=== PATIENT | female | born 1965 | race Caucasian/White ===

== ENCOUNTER 2020-11-11 12:05 | Inpatient (IN) | payer OTHER ==
[~2020-11-11] VITALS: Ht 162.6 cm; Wt 57.2 kg
[2020-11-11 14:13] LABS: HEMOGLOBIN 13.3 gm/dl (12.3-15.3); RED BLOOD COUNT 5.01 M/UL (4.00-5.10); WHITE BLOOD COUNT 9.3 K/UL (4.5-11.0)
[2020-11-11] MEDS ORDERED: GABAPENTIN400 MG PO (18:35)
[2020-11-11] MEDS ORDERED: KLONOPIN0.5 MG PO (18:35)
[2020-11-11] MEDS ORDERED: HYDROCODON-ACE1 EAC6 PO (18:36)
[2020-11-11] MEDS ORDERED: AMLODIPINE BESYL5 MG PO (18:36)
[2020-11-11] MEDS ORDERED: CETIRIZINE HCL10 MG PO (18:37)
[2020-11-11] MEDS ORDERED: BACLOFEN20 MG PO (18:37)
[2020-11-11] MEDS ORDERED: METOPROLOL TART25 MG PO (18:38)
[2020-11-11] MEDS ORDERED: HYDROXYZINE PAM25 MG PO (18:38)
[2020-11-12 02:43] LABS: HEMOGLOBIN 14.1 gm/dl (12.3-15.3); RED BLOOD COUNT 5.34 M/UL (4.00-5.10); WHITE BLOOD COUNT 9.2 K/UL (4.5-11.0)
[2020-11-13 03:55] LABS: HEMOGLOBIN 13.7 gm/dl (12.3-15.3); RED BLOOD COUNT 5.19 M/UL (4.00-5.10)
[2020-11-13 09:10] LABS: HBSAG SCREEN Negative (Negative); HEP A AB, IGM Negative (Negative); HEP B CORE AB, IGM Indeterminate (Negative); HEP C VIRUS AB <0.1 (0.0-0.9)
[2020-11-14 02:36] LABS: HEMOGLOBIN 12.6 gm/dl (12.3-15.3); RED BLOOD COUNT 4.81 M/UL (4.00-5.10); WHITE BLOOD COUNT 10.9 K/UL (4.5-11.0)
[2020-11-15 04:41] LABS: RED BLOOD COUNT 5.35 M/UL (4.00-5.10); WHITE BLOOD COUNT 13.8 K/UL (4.5-11.0)
[2020-11-15 05:02] LABS: BUN/CREATININE RATIO 22 (0-10)
--- NOTE | 2020-11-15 13:00 | NUR ---
PT TRANSFERRED TO HOUSE PAINTING INSTRUCTOR AT THIS TIME
--- NOTE | 2020-11-15 14:40 | NUR ---
PT BACK FROM [facility], SHEATH REMAINS IN PLACE ACT AT THIS TIME WAS >400, WILL RECHECK IN 1 HOUR
--- NOTE | 2020-11-15 16:08 | NUR ---
ACT DONE AT THIS TIME 239, WILL RECHECK IN 1 HOUR
--- NOTE | 2020-11-15 17:15 | NUR ---
ACT AT THIS TIME WAS 187, WILL RECHECK IN 1 HOUR
[2020-11-15 21:04] LABS: HEMOGLOBIN 13.5 gm/dl (12.3-15.3); RED BLOOD COUNT 5.12 M/UL (4.00-5.10); WHITE BLOOD COUNT 10.5 K/UL (4.5-11.0)
--- NOTE | 2020-11-16 01:00 | NUR ---
ACT WAS 142 AT 2009. SHEATH WAS PULLED AT 2030 BY THE PRIMARY NURSE (ME), AND ASSISTED BY A 2ND NURSE. MANUAL PRESSURE WAS APPLIED 2CM ABOVE SHEATH INSERTION SITE, WHERE THE FEMORALPULSE COULD BE PALAPATED. THE PATIENT HAD BEEN GIVEN PAIN MEDICATION PRIOR TO PULLING SHEATH. THE PATIENT WAS SCREAMING THAT I WAS KILLING HER. THE PATIENT THEN KEPT BEARING DOWN AND TRYING TO MOVE MY HANDS. THE PATIENT STARTED BLEEDING AT 2035. THE 2ND NURSE ASSISTING WENT TO GET HELP AND CAME BACK WITH A 3RD NURSE. I SWITCHED OUT HOLDING PRESSURE WITH THE 3RD NURSE AND PRESSED THE STAFF ASSIST BUTTON. I CALLED THE EXPLOSIVE TECHNICIAN WHO DID THE PATIENT'S HEART CATH, DR. TURNER. DR. TURNER WAS INFORMED OF THE SITUATION AND ORDERED 1MG OF VERSED TO BE GIVEN IMMEDIATELY IVP. DR. TURNER ALSO INSTRUCTED TO KEEP GIVING 1MG OF VERSED IVP OR 1MG OF ATIVAN IVP Q1H NEEDED TO KEEP THE PATIENT FROM BEARING DOWN AND LAYING FLAT. MD INSTRUCTED TO ONLY REFRAIN FROM GIVING MEDICATION IF THE PATIENT'S SBP DROPS BELOW 100. 1MG OF VERSED WAS GIVEN TO THE PATIENT IVP AT 2056. PRESSURE WAS RELEASED AT 2050. DSTAT WAS APPLIED WITH TEGADERM. THROUGHOUT THE EVENT THE PATIENT'S SBP NEVER DROPPED BELOW 107. A CBC WAS OBTAINED TO MEASURE BLOOD LOSS. THE PATIENTS HGB DROPPED FROM 14.0 TO 13.5. PATIENT IS CURRENTLY RESING FLAT AND HAS A 10LB SANDBAG OVER TOP OF THE SITE. THERE IS NO HEMATOMA.
[2020-11-16 03:28] LABS: HEMOGLOBIN 12.6 gm/dl (12.3-15.3); RED BLOOD COUNT 4.85 M/UL (4.00-5.10); WHITE BLOOD COUNT 9.1 K/UL (4.5-11.0)
[2020-11-16 03:50] LABS: BUN/CREATININE RATIO 24 (0-10)
--- NOTE | 2020-11-16 10:29 | NUR ---
PATIENT LEFT FLOOR AT 0750 PER RADIOLOGY STAFF FOR VIABLILITY STUDY. SHE WAS RETURNED AT 0840. NADN. WILL CONTINUE TEST IN AM. PER STAFF PATIENT WILL NOT HAVE TO BE NPO FOR THE 2ND HALF OF THE TEST
[2020-11-17 03:21] LABS: HEMOGLOBIN 11.5 gm/dl (12.3-15.3); RED BLOOD COUNT 4.41 M/UL (4.00-5.10); WHITE BLOOD COUNT 10.4 K/UL (4.5-11.0)
[2020-11-17] MEDS ORDERED: LISINOPRIL2.5 MG PO (14:38)
[2020-11-17] MEDS ORDERED: ASPIRIN EC81 MG PO (14:38)
[2020-11-17] MEDS ORDERED: NITROGLYCERIN0.4 MG SL (14:38)
[2020-11-17] MEDS ORDERED: LIPITOR40 MG PO (14:38)
[2020-11-17] MEDS ORDERED: LASIX40 MG PO (14:38)
[2020-11-17] MEDS ORDERED: FLAGYL500 MG PO (14:44)
[2020-11-17] MEDS ORDERED: LEVOFLOXACIN500 MG PO (14:44)
[2020-11-17] MEDS ORDERED: NICOTINE PATCH1 EAC1 TD (14:59)
== END 2020-11-17 18:05 | disposition home or self-care (01) | DRG 280 ==
LOC: ER1 12:05 → EDBD 12:05 → CDU 16:49 → PROG CARE 16:49
PROVIDERS: Internal Medicine Infectious Disease; Internal Medicine Interventional Cardiology; Physician Assistant; ADMIT Internal Medicine
PROC: 4A023N8 Measurement of Cardiac Sampling and Pressure, Bilateral, Percutaneous Approach (ICD-10-PCS; principal; 2020-11-15)
PROC: B2111ZZ Fluoroscopy of Multiple Coronary Arteries using Low Osmolar Contrast (ICD-10-PCS; 2020-11-15)
PROC: B2161ZZ Fluoroscopy of Right and Left Heart using Low Osmolar Contrast (ICD-10-PCS; 2020-11-15)
DX: I21.4 Non-ST elevation (NSTEMI) myocardial infarction (principal); I50.21 Acute systolic (congestive) heart failure; J18.9 Pneumonia, unspecified organism; J69.0 Pneumonitis due to inhalation of food and vomit; E87.1 Hypo-osmolality and hyponatremia; J44.0 Chronic obstructive pulmonary disease with (acute) lower respiratory infection; Z20.822 Contact with and (suspected) exposure to COVID-19; F17.210 Nicotine dependence, cigarettes, uncomplicated; F19.10 Other psychoactive substance abuse, uncomplicated; I11.0 Hypertensive heart disease with heart failure; E87.6 Hypokalemia; R74.01 Elevation of levels of liver transaminase levels; I25.5 Ischemic cardiomyopathy; E78.5 Hyperlipidemia, unspecified; F41.9 Anxiety disorder, unspecified; I49.3 Ventricular premature depolarization; Z88.0 Allergy status to penicillin; Z88.8 Allergy status to other drugs, medicaments and biological substances; Z82.49 Family history of ischemic heart disease and other diseases of the circulatory system; Z79.899 Other long term (current) drug therapy
CPT/HCPCS: ECHO; 36415; 71045; 78452; 80048; 80053; 80074; 80076; 80307; 81001; 82550; 82553; 83605; 83735; 83874; 83880; 84132; 84484; 85025; 85027; 85347; 85730; 86140; 87040; 93005; 93306; 94760; 96374; 97161; 99152; 99153; 99285; A9505; C1769; C1887; J1200; J1335; J1644; J1940; J1956; J2060; J2250; J3010; J3370; J7030; J7040; J7050; J7070; Q0177; Q9967; U0002

== ENCOUNTER 2020-12-15 11:04 | Inpatient (IN) | payer OTHER ==
[~2020-12-15] VITALS: Ht 162.6 cm; Wt 54.9 kg
[~2020-12-15 11:04] MED LIST: AMLODIPINE BESYL5 MG PO; ASPIRIN EC81 MG PO; BACLOFEN20 MG PO; CETIRIZINE HCL10 MG PO; FLAGYL500 MG PO; GABAPENTIN400 MG PO; HYDROCODON-ACE1 EAC6 PO; HYDROXYZINE PAM25 MG PO; KLONOPIN0.5 MG PO; LASIX40 MG PO; LEVOFLOXACIN500 MG PO; LIPITOR40 MG PO; LISINOPRIL2.5 MG PO; METOPROLOL TART25 MG PO; NICOTINE PATCH1 EAC1 TD; NITROGLYCERIN0.4 MG SL
[2020-12-15 11:45] LABS: RED BLOOD COUNT 5.07 M/UL (4.00-5.10); WHITE BLOOD COUNT 5.9 K/UL (4.5-11.0)
[2020-12-15] MEDS ORDERED: NITROSTAT 0.40.4 MG SL (17:43)
[2020-12-15] MEDS ORDERED: OMEPRAZOLE20 MG PO (17:44)
[2020-12-15] MEDS ORDERED: VENLAFAXINE HCL75 M1 PO (17:45)
[2020-12-15] MEDS ORDERED: FUROSEMIDE10 MG/1 M1 IVP (18:09)
[2020-12-16 02:16] LABS: HEMOGLOBIN 11.3 gm/dl (12.3-15.3); WHITE BLOOD COUNT 6.3 K/UL (4.5-11.0)
[2020-12-16 02:23] LABS: RED BLOOD COUNT 4.46 M/UL (4.00-5.10)
--- NOTE | 2020-12-16 04:22 | NUR ---
12/15/20 @ 20:30 - RN contacted patient's emergency contact pertaining to pt's lifevest needing a new battery. Patient's emergency contact stated that they are unable to bring the new battery at this time related to not having transportation at this time. RN asked pt's emergency contact if they could bring the new battery tonight and they stated "Yeah I guess, if I can". 12/16/20 @ 04:28 - Patient's emergency contact still has yet to bring the new battery for her life vest.
--- NOTE | 2020-12-16 09:55 | NUR ---
0810- NOTIFIED DR LEMUS OF [facility]. ORDER TO DC AT THIS TIME.
--- NOTE | 2020-12-16 09:57 | NUR ---
0903- CALL [facility] TO GET TRANSPORT. STATED IT WOULD BE 10AM BEFORE AMBULANCE WOULD BE HERE.
--- NOTE | 2020-12-16 09:57 | NUR ---
0900- NOTIFIED DR LEMUS OF [facility] OF 0.66. NO NEW ORDER AT THIS TIME.
== END 2020-12-16 11:21 | disposition short-term general hospital (02) | DRG 280 ==
LOC: ER1 11:04 → CDU 14:45 → MED SURG 4 18:34
PROVIDERS: Physician Assistant; Physician Assistant Medical; ADMIT Internal Medicine
DX: I21.4 Non-ST elevation (NSTEMI) myocardial infarction (principal); I50.23 Acute on chronic systolic (congestive) heart failure; Z20.822 Contact with and (suspected) exposure to COVID-19; I25.5 Ischemic cardiomyopathy; F15.19 Other stimulant abuse with unspecified stimulant-induced disorder; F11.10 Opioid abuse, uncomplicated; I25.10 Atherosclerotic heart disease of native coronary artery without angina pectoris; F19.10 Other psychoactive substance abuse, uncomplicated; Z79.01 Long term (current) use of anticoagulants; Z79.82 Long term (current) use of aspirin; Z88.0 Allergy status to penicillin; Z88.8 Allergy status to other drugs, medicaments and biological substances; Z82.49 Family history of ischemic heart disease and other diseases of the circulatory system
CPT/HCPCS: 36415; 71045; 80048; 80053; 80307; 81001; 82550; 82553; 83735; 83874; 83880; 84484; 85025; 85027; 87086; 93005; 96374; 96375; 99285; J0696; J1940; J2405; J3475; U0002